=== PATIENT | female | born 1965 | race Caucasian/White ===

== ENCOUNTER 2022-08-25 06:21 | Emergency (ER) | payer MEDICAID ==
[~2022-08-25] VITALS: Ht 175.3 cm; Wt 70.3 kg
[2022-08-25 06:38] VITALS: BP 160/73
--- NOTE | 2022-08-25 06:38 | NUR ---
TO BED AMBULATORY
--- NOTE | 2022-08-25 06:45 | NUR ---
SEEN AND EXAMINED BY ALICE
[2022-08-25] MEDS ORDERED: AMOXICILLIN 500 MG CAP PO ONE (06:50)
[2022-08-25] MEDS ORDERED: ACETAMINOPHEN EXTRA STRENGTH 500 MG TAB PO ONE (06:50)
[2022-08-25] MEDS ORDERED: MUC600 PO (06:53)
[2022-08-25] MEDS ORDERED: AMOX500C25 PO (06:53)
[2022-08-25 07:05] VITALS: BP 160/73
--- NOTE | 2022-08-25 07:06 | NUR ---
Patient discharged with v/s stable. Written and verbal after care instructions given and explained. Patient alert, oriented and verbalized understanding of instructions. Ambulatory with steady gait. All questions addressed prior to discharge. ID band removed. Patient advised to follow up with PMD. Rx of AMOXICILLIN, MUCINEX given. Patient educated on indication of medication including possible reaction and side effects. Opportunity to ask questions provided and answered.
== END 2022-08-25 07:05 | disposition home or self-care (01) ==
LOC: MED 06:21
DX: J06.9 Acute upper respiratory infection, unspecified (principal); H66.92 Otitis media, unspecified, left ear; Z79.899 Other long term (current) drug therapy; Z86.73 Personal history of transient ischemic attack (TIA), and cerebral infarction without residual deficits
CPT/HCPCS: 99283